=== PATIENT | male | born 1975 | race Caucasian/White ===

== ENCOUNTER 2017-07-09 20:27 | Emergency (ER) | payer BC ==
[2017-07-09] MEDS ORDERED: IBUPROFEN 400 MG TABLET PO ONE (20:34)
--- NOTE | 2017-07-09 20:40 | Emergency Department Record ---
History of Present Illness - General Chief Complaint: Knee injury Stated Complaint: LT KNEE PAIN Time Seen by Provider: 07/09/17 20:34 Source: Patient Mode of Arrival: Ambulatory Limitations: No limitations - History of Present Illness Initial Comments: 41 yo male presents to ED for evaluation following an injury to the left knee that occurred approximately 45 minutes ago. Patient reports that his dog struck him in the lateral aspect of the left knee resulting in pain and swelling. Patient reports a history of PCL strain approximately 25 years ago, symptoms are similar. Patient denies health problems at his baseline. MD Complaint: Knee injury Onset/Timin -: Minutes(s) Injury: Knee: Left Type of Injury: Blunt Place: Home Severity: Moderate Improves With: Nothing Worsens With: Weight bearing Context: Direct blow Associated Symptoms: Swelling, Able to partially bear weight - Related Data Previous Rx's Medication Instructions Recorded Ibuprofen [Motrin] 800 mg PO Q6H PRN #30 tab 07/09/17 Allergies Allergy/AdvReac Type Severity Reaction Status Date / Time No Known Allergies Allergy Unverified 12/08/15 12:10 Review of Systems Constitutional: Denies: Chills, Fever, Malaise, Night sweats Eyes: Denies: Eye discharge, Eye pain ENT: Denies: Congestion, Ear pain, Epistaxis Respiratory: Denies: Cough, Dyspnea Cardiovascular: Denies: Chest pain, Dyspnea on exertion Endocrine: Denies: Fatigue, Heat or cold intolerance Gastrointestinal: Denies: Abdominal pain, Nausea, Vomiting Genitourinary: Denies: Incontinence, Retention Musculoskeletal: Reports: Arthralgia, Joint swelling. Denies: Back pain, Gout Skin: Denies: Bruising, Change in color Neurological: Denies: Abnormal gait, Confusion, Headache, Seizure Psychiatric: Denies: Anxiety Hematological/Lymphatic: Denies: Anemia, Blood Clots Physical Exam - General General Appearance: Alert, Oriented x3, Cooperative, Moderate distress Limitations: No limitations - Head Head exam: Atraumatic, Normocephalic, Normal inspection Head exam detail: negative: Abrasion, Contusion, Bray's sign, General tenderness, Hematoma, Laceration - Eye Eye exam: Normal appearance. negative: Conjunctival injection, Periorbital swelling, Periorbital tenderness, Scleral icterus - ENT Ear exam: negative: Auricular hematoma, Auricular trauma Nasal Exam: negative: Active bleeding, Discharge, Dried blood, Foreign body Mouth exam: negative: Drooling, Laceration, Muffled voice, Tongue elevation - Neck Neck exam: Normal inspection. negative: Meningismus, Tenderness - Respiratory Respiratory exam: Normal lung sounds bilaterally. negative: Rales, Respiratory distress, Rhonchi, Stridor - Cardiovascular Cardiovascular Exam: Regular rate, Normal rhythm, Normal heart sounds - GI/Abdominal GI/Abdominal exam: Soft. negative: Rebound, Rigid, Tenderness - Rectal Rectal exam: Deferred - exam: Deferred - Extremities Extremities exam: Joint swelling, Tenderness, Other (Mild STS to the left knee with pain along the LCL, no pain along the infrapatellar/suprapatellar regions.) . negative: Calf tenderness, Pedal edema - Back Back exam: Reports: Normal inspection. Denies: CVA tenderness (R), CVA tenderness (L) - Neurological Neurological exam: Alert, Oriented X3 - Psychiatric Psychiatric exam: Normal affect, Normal mood - Skin Skin exam: Normal color. negative: Abrasion Type of lesion: negative: abrasion Course Vital Signs 07/09/17 20:31 Temperature 98.5 F Pulse Rate [ 102 H Pulse Ox Probe] Respiratory 20 Rate Blood Pressure 110/70 [Left Arm] Pulse Ox 97 - Reevaluation(s) Reevaluation #1: 07/09/17 21:28 Left Knee: Small calcification posterio-lateral aspect of the knee, likely chronic in nature Patient was updated on his radiology result, will refer to Dr. Martinez for outpatient evaluation in the [facility] Specialty clinic. Will place in knee immobilizer and administer crutches, patient appears stable for discharge at this time. Disposition Disposition: Discharge Clinical Impression: Strain of knee and leg, left Qualifiers: Encounter type: initial encounter Qualified Code(s): S86.912A - Strain of unspecified muscle(s) and tendon(s) at lower leg level, left leg, initial encounter Disposition: Home, Self-Care Condition: (2) Stable Instructions: Knee Pain (ED) Additional Instructions: Return to ED if your symptoms worsen or if you have any concerns. Follow-up with Dr. Martinez in 3-5 days as directed for further evaluation of your knee pain symptoms (possible MRI). Motrin 800 mg as directed. Prescriptions: Ibuprofen [Motrin] 800 mg PO Q6H PRN #30 tab PRN Reason: Pain - Moderate (5-7) Referrals: KAMILA MARTINEZ [DOCTOR OF OSTEOPATH] - [facility] Specialty Clinics [Provider Group] Forms: Patient Portal Access Time of Disposition: 20:40 Quality - Quality Measures Quality Measures: N/A - Blood Pressure Screening Does Patient Have Any of the Following: No Blood Pressure Classification: Normal BP Reading Systolic Measurement: 110 Diastolic Measurement: 70 Screening for High Blood Pressure: < Normal BP, F/U Not Required > [[id number]]
--- NOTE | 2017-07-10 14:12 | RADIOLOGY REPORT ---
EXAM: LEFT KNEE HISTORY: ACCIDENTAL INJURY TO LEFT KNEE BY FAROESE GOLDSMITH THAT COLLIDED WITH HIM ABOUT 45 MINUTES AGO. TECHNIQUE: Four views of the left knee were obtained. Comparison: None. Encounter: Initial. FINDINGS: On the patellar sunrise view there is a somewhat unusual bony density along the medial aspect of the patellofemoral articulation. This is probably faintly seen along the inferior aspect of the patella on the lateral view. The significance of this is uncertain although this may be a chronic bony density and measures up to approximately 11 mm in length and on the lateral view may well be considerably longer along the posterior aspect of the patella. There may be a small joint effusion present. Minor spurring at the patellofemoral articulation as well. Elsewhere the left knee appears negative. IMPRESSION: 1. UNUSUAL BONY DENSITY ALONG THE POSTERIOR ASPECT OF THE PATELLA MEDIALLY WHICH APPEARS RELATIVELY SMOOTH AND MAY WELL BE CHRONIC IN NATURE. COMPARISON WITH ANY OLD FILMS WOULD BE USEFUL. 2. MINOR DEGENERATIVE ARTHRITIS AT THE PATELLOFEMORAL ARTICULATION WELL. 3. THERE MAY BE A SMALL JOINT EFFUSION PRESENT. 4. IF THERE ARE NO PRIOR FILMS TO COMPARE, FOLLOW-UP MRI OF THE LEFT KNEE MIGHT BE USEFUL FOR FURTHER EVALUATION. JOB NUMBER: [id number] [facility]
== END 2017-07-09 21:44 | disposition home or self-care (01) ==
LOC: ER 20:27
DX: S86.912A Strain of unspecified muscle(s) and tendon(s) at lower leg level, left leg, initial encounter (principal); W54.1XXA Struck by dog, initial encounter; Y93.K9 Activity, other involving animal care; Y92.009 Unspecified place in unspecified non-institutional (private) residence as the place of occurrence of the external cause
CPT/HCPCS: 99283